=== PATIENT | female | born 1990 | race Caucasian/White ===

== ENCOUNTER 2018-07-30 21:42 | Emergency (ER) | payer SELFPAY ==
[~2018-07-30] VITALS: Ht 149.9 cm; Wt 74.8 kg
--- NOTE | 2018-07-30 22:27 | PHYS DOC ---
Adult General Chief Complaint Chief Complaint: ABDOMINAL PAIN IN HPI HPI Patient is a 28 year old female who presents with RLQ pain with known . Patient had onset of RLQ pain this evening at 9pm constant worse with movement. No fevers or vomiting. No vaginal bleeding or discharge. Pain radiated to her right flank. She's noted frequency and urgency over the past 2 weeks. Patient is in a recovery house for methamphetamine use. She is 14 weeks . Review of Systems Review of Systems Constitutional: Denies fever or chills Eyes: Denies change in visual acuity, redness, or eye pain HENT: Denies nasal congestion or sore throat Respiratory: Denies cough or shortness of breath Cardiovascular: Denies chest pain or palpitations GI: with RLQ abdominal pain, no nausea, vomiting, bloody stools or diarrhea : Denies dysuria or hematuria, with frequency Musculoskeletal: Denies back pain or joint pain, with right flank pain Integument: Denies rash or skin lesions Neurologic: Denies headache, focal weakness or sensory changes Endocrine: Denies polyuria or polydipsia All other systems were reviewed and found to be within normal limits, except as documented in this note. Current Medications Current Medications Current Medications Medications (Trade) Dose Ordered Sig/Richard Start Time Stop Time Status Last Admin Dose Admin Ceftriaxone Sodium 1 gm/ Dextrose 50 ml @ 100 mls/hr 1X STAT 07/30/18 23:39 07/31/18 00:08 UNV Ceftriaxone Sodium 50 ml @ 100 mls/hr 1X ONCE 07/30/18 23:45 07/31/18 00:14 DC 07/31/18 00:10 100 MLS/HR Ondansetron HCl (Zofran) 4 mg STK-MED ONCE 07/30/18 22:51 07/30/18 22:52 DC Sodium Chloride 1,000 ml @ 1,000 mls/hr 1X ONCE 07/30/18 22:45 07/30/18 23:44 DC 07/30/18 22:45 1,000 MLS/HR Allergies Allergies Allergies Coded Allergies Type Severity Reaction Last Updated Verified No Known Drug Allergies 07/30/18 No Physical Exam Physical Exam Constitutional: Well developed, well nourished, no acute distress, non-toxic appearance. [] HENT: Normocephalic, atraumatic, bilateral external ears normal, oropharynx moist, no oral exudates, nose normal. [] Eyes: PERRLA, EOMI, conjunctiva normal, no discharge. [] Neck: Normal range of motion, no tenderness, supple, no stridor. [] Cardiovascular:Heart rate regular rhythm, no murmur [] Lungs & Thorax: Bilateral breath sounds clear to auscultation [] Abdomen: Bowel sounds normal, soft, no tenderness, no masses, no pulsatile masses. [] Skin: Warm, dry, no erythema, no rash. [] Back: No tenderness, no CVA tenderness. [] Extremities: No tenderness, no cyanosis, no clubbing, ROM intact, no edema. [] Neurologic: Alert and oriented X 3, normal motor function, normal sensory function, no focal deficits noted. [] Psychologic: Affect normal, judgement normal, mood normal. [] Current Patient Data Vital Signs Vital Signs Date Time Temp Pulse Resp B/P (MAP) Pulse Ox O2 Delivery O2 Flow Rate FiO2 07/31/18 02:43 95 18 106/55 (72) 98 Room Air 07/30/18 22:24 97.6 97.6 Lab Values Laboratory Tests Test 07/30/18 21:45 07/30/18 22:24 07/30/18 22:35 07/30/18 23:59 Urine Collection Type Unknown Urine Color Yellow Urine Clarity Clear Urine pH 6.0 Urine Specific [place] 1.025 Urine Protein Negative mg/dL (NEG-TRACE) Urine Glucose (UA) Negative mg/dL (NEG) Urine Ketones (Stick) Negative mg/dL (NEG) Urine Blood Negative (NEG) Urine Nitrite Negative (NEG) Urine Bilirubin Negative (NEG) Urine Urobilinogen Dipstick 0.2 mg/dL (0.2 mg/dL) Urine Leukocyte Esterase Moderate (NEG) Urine RBC 11-20 /HPF (0-2) Urine WBC >40 /HPF (0-4) Urine Squamous Epithelial Cells Mod /LPF Urine Bacteria Moderate /HPF (0-FEW) Urine Mucus Mod /LPF POC Urine HCG, Qualitative Hcg positive (Negative) White Blood Count 13.8 x10^3/uL (4.0-11.0) H Red Blood Count 4.15 x10^6/uL (3.50-5.40) Hemoglobin 13.2 g/dL (12.0-15.5) Hematocrit 38.3 % (36.0-47.0) Mean Corpuscular Volume 92 fL (79-100) Mean Corpuscular Hemoglobin 32 pg (25-35) Mean Corpuscular Hemoglobin Concent 34 g/dL (31-37) Red Cell Distribution Width 13.4 % (11.5-14.5) Platelet Count 215 x10^3/uL (140-400) Neutrophils (%) (Auto) 74 % (31-73) H Lymphocytes (%) (Auto) 19 % (24-48) L Monocytes (%) (Auto) 5 % (0-9) Eosinophils (%) (Auto) 2 % (0-3) Basophils (%) (Auto) 0 % (0-3) Neutrophils # (Auto) 10.3 x10^3uL (1.8-7.7) H Lymphocytes # (Auto) 2.6 x10^3/uL (1.0-4.8) Monocytes # (Auto) 0.7 x10^3/uL (0.0-1.1) Eosinophils # (Auto) 0.2 x10^3/uL (0.0-0.7) Basophils # (Auto) 0.0 x10^3/uL (0.0-0.2) Maternal Serum HCG Beta Subunit 01521 mIU/mL (0-5) H Sodium Level 139 mmol/L (136-145) Potassium Level 3.6 mmol/L (3.5-5.1) Chloride Level 103 mmol/L (98-107) Carbon Dioxide Level 25 mmol/L (21-32) Anion Gap 11 (6-14) Blood Urea Nitrogen 10 mg/dL (7-20) Creatinine 0.5 mg/dL (0.6-1.0) L Estimated GFR (Cockcroft-Gault) 149.1 BUN/Creatinine Ratio 20 (6-20) Glucose Level 108 mg/dL (70-99) H Calcium Level 9.0 mg/dL (8.5-10.1) Total Bilirubin 0.1 mg/dL (0.2-1.0) L Aspartate Amino Transferase (AST) 10 U/L (15-37) L Alanine Aminotransferase (ALT) 25 U/L (14-59) Alkaline Phosphatase 63 U/L (46-116) Total Protein 6.5 g/dL (6.4-8.2) Albumin 3.1 g/dL (3.4-5.0) L Albumin/Globulin Ratio 0.9 (1.0-1.7) L Lipase 90 U/L (73-393) Lactic Acid Level 0.9 mmol/L (0.4-2.0) Laboratory Tests 07/30/18 22:35 Laboratory Tests 07/30/18 22:35 Microbiology 07/30/18 Blood Culture - Preliminary, Resulted NO GROWTH AFTER 2 DAYS 07/30/18 Urine Culture - Final, Complete 07/30/18 Urine Culture Result 1 (ANGEL) - Final, Complete EKG EKG [] Radiology/Procedures Radiology/Procedures [facility] [address] [place] [address] IMAGING REPORT Signed PATIENT: ALEXUS WHALEY ACCOUNT: [id number] : 1990 LOCATION: ER AGE: 28 SEX: F EXAM STATUS: REG ER ORD. PHYSICIAN: JORGE LUIS ZHANG MD REASON: right flank pain/UTI PROCEDURE: PREG 1ST TRIMESTER Indication:RT FLANK PAIN UTI TECHNIQUE: Ultrasound pelvis was trimester COMPARISON:None FINDINGS: The uterus measures 16.0 x 8.6 x 11.8 cm (longitudinal, AP, transverse). Cervix is within normal limits. The right ovary measures 2.2 x 3.6 x 2.9 cm and demonstrates evidence of blood flow. The left ovary measures 2.1 x 3.7 x 2.0 cm and demonstrates evidence of blood flow. Single intrauterine seen with cardiac activity at the rate of 144 bpm. Placenta is posterior in position. The head circumference measures 9.09 cm corresponding to gestation age of 14 weeks 1 day. The biparietal diameter measures 2.45 cm corresponding to gestation age of 14 weeks 1 day. Abdominal circumference measures 7.63 cm corresponding to gestation age of 14 weeks 1 day. Femoral length measures 1.46 cm corresponding to gestation age of 14 weeks 2 days. IMPRESSION: Single viable intrauterine with estimated gestation age of 14 weeks 1 day. Electronically signed by: Jorje Jensen DO (07/31/2018 1:29 AM) [facility] DICTATED and SIGNED BY: JORJE JENSEN DO DATE: 07/31/18126 [facility] [address] [place] [address] IMAGING REPORT Signed PATIENT: ALEXUS WHALEY ACCOUNT: [id number] : 1990 LOCATION: ER AGE: 28 SEX: F EXAM STATUS: REG ER ORD. PHYSICIAN: JORGE LUIS ZHANG MD REASON: right flank pain/UTI PROCEDURE: RENAL COMPLETE RIGHT Indication:RT FLANK PAIN UTI TECHNIQUE: Grayscale, color Doppler and spectral waveform is of the right kidney obtained. COMPARISON:None FINDINGS/ impression: The right kidney measures 10.0 x 4.4 x 4.2 cm without hydronephrosis. Bladder within normal limits. Bilateral ureteral jets are seen. Electronically signed by: Jorje Jensen DO (07/31/2018 1:31 AM) [facility] DICTATED and SIGNED BY: JORJE JENSEN DO DATE: 07/31/18128 Course & Med Decision Making Course & Med Decision Making Pertinent Labs and Imaging studies reviewed. (See chart for details) Emergency Department Course Patient presents with RLQ pain and frequency DDx- ectopic , appendicitis, right ovarian cyst, right kidney stone, UTI Patient was stable in the ED. 01:20 She is feeling better. Right renal ultrasound showed no evidence of hydronephrosis. Pelvic ultrasound shows a 14 week IUP with cardiac activity at 144. Her right lower quadrant pain has resolved after IV NS hydration and Zofran. Patient given Rocephin for UTI. Labs remarkable for leukocytosis. Quantitative [id number]. 01:[address] Louis who recommends outpatient antibiotics and follow-up. 02:00 I spoke with pharmacist Leonid who recommends Keflex TID for 10 days. Dragon Disclaimer Dragon Disclaimer This electronic medical record was generated, in whole or in part, using a voice recognition dictation system. Departure Departure Impression: Primary Impression: 14 weeks gestation of Additional Impressions: UTI (urinary tract infection) Abdominal pain during in second trimester Disposition: 01 HOME, SELF-CARE Condition: STABLE Referrals: NO PCP (PCP) KEITH OCASIO MD Follow-up tomorrow for further evaluation LUNA LOUIS MD Follow-up tomorrow for further evaluation Patient Instructions: Abdominal Pain During , Urinary Tract Infection Additional Instructions: Follow-up tomorrow for further evaluation. If you develop recurrent pain, fevers , vomiting, shortness of breath, return to the Emergency Department. Scripts Cephalexin (KEFLEX) 500 Mg Capsule 1 CAP PO TID for 10 Days, #30 CAP Prov: JORGE LUIS ZHANG MD 07/31/18 Problem Qualifiers Additional Impressions: UTI (urinary tract infection) Urinary tract infection type: site unspecified Hematuria presence: with hematuria Qualified Codes: N39.0 - Urinary tract infection, site not specified ; R31.9 - Hematuria, unspecified JORGE LUIS ZHANG MD Jul 30, 2018 22:27
[2018-07-30 22:34] LABS: BILIRUBIN,URINE NEGATIVE (NEG); CLARITY,URINE CLEAR; COLOR,URINE YELLOW; NITRITE,URINE NEGATIVE (NEG); PROTEIN,URINE NEGATIVE (NEG-TRACE); UROBILINOGEN,URINE 0.2 mg/dL (0.2 mg/dL)
[2018-07-30 22:42] LABS: BACTERIA,URINE MODERATE /HPF (0-FEW); SQUAMOUS EPITHELIAL CELL,UR MOD /LPF; WBC,URINE >40 /HPF (0-4)
[2018-07-30] MEDS: IV NORMAL SALINE 1000ML BAG 1,000 ML IV ONE (22:45)
[2018-07-30] MEDS: ONDANSETRON PF 4 MG/2 ML VIAL. IV ONE (22:45)
[2018-07-30 22:49] LABS: BASO % 0 % (0-3); EOS # 0.2 x10^3/uL (0.0-0.7); EOS % 2 % (0-3); HEMATOCRIT 38.3 % (36.0-47.0); HEMOGLOBIN 13.2 g/dL (12.0-15.5); LYMPH # 2.6 x10^3/uL (1.0-4.8); LYMPH % 19 % (24-48); MEAN CORPUSCULAR HEMOGLOBIN 32 pg (25-35); MEAN CORPUSCULAR HGB CONC 34 g/dL (31-37); MEAN CORPUSCULAR VOLUME 92 fL (79-100); MONO # 0.7 x10^3/uL (0.0-1.1); MONO % 5 % (0-9); NEUT # 10.3 x10^3uL (1.8-7.7); NEUT % 74 % (31-73); PLATELET COUNT 215 x10^3/uL (140-400); RED BLOOD COUNT 4.15 x10^6/uL (3.50-5.40); RED CELL DISTRIBUTION WIDTH 13.4 % (11.5-14.5); WHITE BLOOD COUNT 13.8 x10^3/uL (4.0-11.0)
[2018-07-30] MEDS ORDERED: ONDANSETRON PF 4 MG/2 ML VIAL. ONE (22:51)
[2018-07-30 22:59] LABS: CREATININE 0.5 mg/dL (0.6-1.0); GFR 149.1; POTASSIUM 3.6 mmol/L (3.5-5.1)
[2018-07-30 23:08] LABS: ALBUMIN 3.1 g/dL (3.4-5.0); ALBUMIN/GLOBULIN RATIO 0.9 (1.0-1.7); TOTAL BILIRUBIN 0.1 mg/dL (0.2-1.0); TOTAL PROTEIN 6.5 g/dL (6.4-8.2)
--- NOTE | 2018-07-31 01:33 | RAD ---
Indication:RT FLANK PAIN UTI TECHNIQUE: Ultrasound pelvis was trimester COMPARISON:None FINDINGS: The uterus measures 16.0 x 8.6 x 11.8 cm (longitudinal, AP, transverse). Cervix is within normal limits. The right ovary measures 2.2 x 3.6 x 2.9 cm and demonstrates evidence of blood flow. The left ovary measures 2.1 x 3.7 x 2.0 cm and demonstrates evidence of blood flow. Single intrauterine seen with cardiac activity at the rate of 144 bpm. Placenta is posterior in position. The head circumference measures 9.09 cm corresponding to gestation age of 14 weeks 1 day. The biparietal diameter measures 2.45 cm corresponding to gestation age of 14 weeks 1 day. Abdominal circumference measures 7.63 cm corresponding to gestation age of 14 weeks 1 day. Femoral length measures 1.46 cm corresponding to gestation age of 14 weeks 2 days. IMPRESSION: Single viable intrauterine with estimated gestation age of 14 weeks 1 day. Electronically signed by: Jorje Jensen DO (07/31/2018 1:29 AM) [facility]
--- NOTE | 2018-07-31 01:34 | RAD ---
Indication:RT FLANK PAIN UTI TECHNIQUE: Grayscale, color Doppler and spectral waveform is of the right kidney obtained. COMPARISON:None FINDINGS/ impression: The right kidney measures 10.0 x 4.4 x 4.2 cm without hydronephrosis. Bladder within normal limits. Bilateral ureteral jets are seen. Electronically signed by: Jorje Jensen DO (07/31/2018 1:31 AM) [facility]
[2018-07-31] MEDS ORDERED: CEPH-264 PO (02:08)
[2018-07-31 02:43] VITALS: BP 106/55
== END 2018-07-31 02:57 | disposition home or self-care (01) ==
LOC: ER 21:42
DX: O23.42 Unspecified infection of urinary tract in pregnancy, second trimester (principal); R10.31 Right lower quadrant pain; Z3A.14 14 weeks gestation of pregnancy
CPT/HCPCS: 36415; 76775; 76801; 80053; 81001; 81025; 83605; 83690; 84702; 85025; 87040; 87086; 96365; 96375; 99285; J0690; J2405; J7030

== ENCOUNTER 2018-08-13 19:52 | Emergency (ER) | payer SELFPAY ==
[~2018-08-13] VITALS: Ht 149.9 cm; Wt 78.5 kg
[~2018-08-13 19:52] MED LIST: CEPH-264 PO
[2018-08-13] MEDS ORDERED: IV NORMAL SALINE 1000ML BAG 1,000 ML IV SCH (20:12)
[2018-08-13] MEDS ORDERED: ONDANSETRON PF 4 MG/2 ML VIAL. IV ONE (20:15)
[2018-08-13 20:23] LABS: BILIRUBIN,URINE NEGATIVE (NEG); CLARITY,URINE CLEAR; COLOR,URINE YELLOW; NITRITE,URINE NEGATIVE (NEG); PROTEIN,URINE NEGATIVE (NEG-TRACE); UROBILINOGEN,URINE 0.2 mg/dL (0.2 mg/dL)
[2018-08-13 20:30] LABS: SQUAMOUS EPITHELIAL CELL,UR FEW /LPF
[2018-08-13 20:31] LABS: BACTERIA,URINE FEW /HPF (0-FEW); RBC,URINE 0 /HPF (0-2)
[2018-08-13 20:33] LABS: TRICHOMONAS,URINE PRESENT
[2018-08-13 20:36] LABS: BASO # 0.1 x10^3/uL (0.0-0.2); BASO % 1 % (0-3); EOS # 0.4 x10^3/uL (0.0-0.7); EOS % 3 % (0-3); HEMATOCRIT 36.2 % (36.0-47.0); HEMOGLOBIN 12.6 g/dL (12.0-15.5); LYMPH # 2.2 x10^3/uL (1.0-4.8); LYMPH % 16 % (24-48); MEAN CORPUSCULAR HEMOGLOBIN 32 pg (25-35); MEAN CORPUSCULAR HGB CONC 35 g/dL (31-37); MEAN CORPUSCULAR VOLUME 91 fL (79-100); MONO # 0.7 x10^3/uL (0.0-1.1); MONO % 5 % (0-9); NEUT # 10.9 x10^3uL (1.8-7.7); NEUT % 76 % (31-73); PLATELET COUNT 211 x10^3/uL (140-400); RED BLOOD COUNT 3.97 x10^6/uL (3.50-5.40); RED CELL DISTRIBUTION WIDTH 13.3 % (11.5-14.5); WHITE BLOOD COUNT 14.4 x10^3/uL (4.0-11.0)
[2018-08-13 20:45] LABS: CALCIUM 8.9 mg/dL (8.5-10.1); CREATININE 0.7 mg/dL (0.6-1.0); GFR 101.1; POTASSIUM 3.4 mmol/L (3.5-5.1)
[2018-08-13 20:50] LABS: ALBUMIN 2.8 g/dL (3.4-5.0); ALBUMIN/GLOBULIN RATIO 0.7 (1.0-1.7); TOTAL BILIRUBIN 0.1 mg/dL (0.2-1.0); TOTAL PROTEIN 6.7 g/dL (6.4-8.2)
[2018-08-13 21:01] LABS: % BANDS 2 % (0-9); % EOS 1 % (0-5); % LYMPHS 17 % (24-48); % MONOS 2 % (0-10); % SEGS 78 % (35-66); PLT ESTIMATE ADEQUATE (ADEQUATE)
--- NOTE | 2018-08-13 21:33 | RAD ---
EXAM: RIGHT UPPER QUADRANT ULTRASOUND. HISTORY: Right upper quadrant pain. COMPARISON: None. FINDINGS: Sonographic evaluation of the right upper quadrant was performed. The liver appears normal in parenchymal echotexture. There are no focal lesions. The gallbladder is unremarkable without evidence of stones, wall thickening or pericholecystic fluid. There is no sonographic Gonzalez sign. The common duct measures 4 mm. Limited images of the visualized portions of the head of the pancreas reveal no abnormality. The right kidney measures 10.0 cm. Cortical thickness and echogenicity are preserved. There is no hydronephrosis. The visualized portions of the abdominal aorta and inferior vena cava are grossly patent and normal in caliber. IMPRESSION: 1. No cause for pain is identified. Electronically signed by: Harini Arias MD (08/13/2018 9:30 PM) [facility]
--- NOTE | 2018-08-13 21:45 | RAD ---
EXAM: Limited obstetric ultrasound. HISTORY: Decreased movement. COMPARISON: None. FINDINGS: Sonographic evaluation of the pelvis and fetus was performed transabdominally. There is a single fetus in vertex presentation. Estimated gestational age based on measurements is 15 weeks 3 days. Individual measurements are commensurate at 15 weeks, 1-5 days. heart rate is 141 bpm. movement is noted. The placenta is posterior. Amniotic fluid volume appears normal. IMPRESSION: 1. Single fetus measuring 15 weeks 3 days. heart rate 141 bpm. Electronically signed by: Harini Arias MD (08/13/2018 9:42 PM) [facility]
[2018-08-13] MEDS ORDERED: ONDA4TAB7 PO (22:31)
--- NOTE | 2018-08-13 22:31 | PHYS DOC ---
Past Medical History Past Medical History: No Pertinent History Past Surgical History: No Surgical History Alcohol Use: None Drug Use: None Adult General Chief Complaint Chief Complaint: OTHER COMPLAINTS HPI HPI Patient is a 28-year-old female who presents with complaint of nausea and vomiting and some pain in her right upper abdomen for the last couple of days. Patient indicates that she is between 14 and 16 weeks and is concerned because she has also felt no movements today. She indicates that the pain in her abdomen is mild and rates it about a 3 or 4 out of 10. She states the pain is worsened after eating. She denies any chest pain or shortness of breath. She also denies any fever. Patient states that nothing improves the symptoms. Review of Systems Review of Systems Constitutional: Denies fever or chills [] Respiratory: Denies cough or shortness of breath [] Cardiovascular: Denies chest pain[] GI: Complains of right upper abdominal pain with nausea and vomiting.[] : Denies dysuria or hematuria [] Musculoskeletal: Complains of mid back pain, primarily on the right[] All other systems were reviewed and found to be within normal limits, except as documented in this note. Current Medications Current Medications Current Medications Medications (Trade) Dose Ordered Sig/Richard Start Time Stop Time Status Last Admin Dose Admin Ondansetron HCl (Zofran) 4 mg 1X ONCE 08/13/18 20:15 08/13/18 20:16 DC 08/13/18 20:15 4 MG Sodium Chloride 1,000 ml @ 1,000 mls/hr Q1H 08/13/18 20:12 08/13/18 21:11 DC 08/13/18 20:12 1,000 MLS/HR Allergies Allergies Allergies Coded Allergies Type Severity Reaction Last Updated Verified No Known Drug Allergies 07/30/18 No Physical Exam Physical Exam Constitutional: Well developed, well nourished, no acute distress, non-toxic appearance. [] HENT: Normocephalic, atraumatic, bilateral external ears normal, oropharynx moist, no oral exudates, nose normal. [] Eyes: PERRLA, EOMI, conjunctiva normal, no discharge. [] Neck: Normal range of motion, no tenderness, supple, no stridor. [] Cardiovascular:Heart rate regular rhythm, no murmur [] Lungs & Thorax: Bilateral breath sounds clear to auscultation [] Abdomen: Bowel sounds normal, soft, with mild right upper quadrant tenderness. [ ] Skin: Warm, dry, no erythema, no rash. [] Extremities: No tenderness, no cyanosis, no clubbing, ROM intact, no edema. [] Neurologic: Alert and oriented X 3, normal motor function, normal sensory function, no focal deficits noted. [] Current Patient Data Vital Signs Vital Signs Date Time Temp Pulse Resp B/P (MAP) Pulse Ox O2 Delivery O2 Flow Rate FiO2 08/13/18 20:00 98.3 101 18 132/79 (96) 97 Room Air 98.3 Lab Values Laboratory Tests Test 08/13/18 20:00 08/13/18 20:30 Urine Collection Type Unknown Urine Color Yellow Urine Clarity Clear Urine pH 6.0 Urine Specific [place] 1.020 Urine Protein Negative mg/dL (NEG-TRACE) Urine Glucose (UA) Negative mg/dL (NEG) Urine Ketones (Stick) Negative mg/dL (NEG) Urine Blood Negative (NEG) Urine Nitrite Negative (NEG) Urine Bilirubin Negative (NEG) Urine Urobilinogen Dipstick 0.2 mg/dL (0.2 mg/dL) Urine Leukocyte Esterase Moderate (NEG) Urine RBC 0 /HPF (0-2) Urine WBC 5-10 /HPF (0-4) Urine Squamous Epithelial Cells Few /LPF Urine Bacteria Few /HPF (0-FEW) Urine Mucus Mod /LPF Urine Trichomonas Present White Blood Count 14.4 x10^3/uL (4.0-11.0) H Red Blood Count 3.97 x10^6/uL (3.50-5.40) Hemoglobin 12.6 g/dL (12.0-15.5) Hematocrit 36.2 % (36.0-47.0) Mean Corpuscular Volume 91 fL (79-100) Mean Corpuscular Hemoglobin 32 pg (25-35) Mean Corpuscular Hemoglobin Concent 35 g/dL (31-37) Red Cell Distribution Width 13.3 % (11.5-14.5) Platelet Count 211 x10^3/uL (140-400) Neutrophils (%) (Auto) 76 % (31-73) H Lymphocytes (%) (Auto) 16 % (24-48) L Monocytes (%) (Auto) 5 % (0-9) Eosinophils (%) (Auto) 3 % (0-3) Basophils (%) (Auto) 1 % (0-3) Neutrophils # (Auto) 10.9 x10^3uL (1.8-7.7) H Lymphocytes # (Auto) 2.2 x10^3/uL (1.0-4.8) Monocytes # (Auto) 0.7 x10^3/uL (0.0-1.1) Eosinophils # (Auto) 0.4 x10^3/uL (0.0-0.7) Basophils # (Auto) 0.1 x10^3/uL (0.0-0.2) Segmented Neutrophils % 78 % (35-66) H Band Neutrophils % 2 % (0-9) Lymphocytes % 17 % (24-48) L Monocytes % 2 % (0-10) Eosinophils % 1 % (0-5) Platelet Estimate Adequate (ADEQUATE) Sodium Level 138 mmol/L (136-145) Potassium Level 3.4 mmol/L (3.5-5.1) L Chloride Level 103 mmol/L (98-107) Carbon Dioxide Level 21 mmol/L (21-32) Anion Gap 14 (6-14) Blood Urea Nitrogen 11 mg/dL (7-20) Creatinine 0.7 mg/dL (0.6-1.0) Estimated GFR (Cockcroft-Gault) 101.1 BUN/Creatinine Ratio 16 (6-20) Glucose Level 128 mg/dL (70-99) H Calcium Level 8.9 mg/dL (8.5-10.1) Total Bilirubin 0.1 mg/dL (0.2-1.0) L Aspartate Amino Transferase (AST) 13 U/L (15-37) L Alanine Aminotransferase (ALT) 18 U/L (14-59) Alkaline Phosphatase 64 U/L (46-116) Total Protein 6.7 g/dL (6.4-8.2) Albumin 2.8 g/dL (3.4-5.0) L Albumin/Globulin Ratio 0.7 (1.0-1.7) L Laboratory Tests 08/13/18 20:30 Laboratory Tests 08/13/18 20:30 EKG EKG [] Radiology/Procedures Radiology/Procedures [] Course & Med Decision Making Course & Med Decision Making Pertinent Labs and Imaging studies reviewed. (See chart for details) [] Dragon Disclaimer Dragon Disclaimer This electronic medical record was generated, in whole or in part, using a voice recognition dictation system. Departure Departure Impression: Primary Impression: Abdominal pain affecting Additional Impression: Nausea and vomiting during Disposition: HOME, SELF-CARE Condition: STABLE Referrals: NO PCP (PCP) Patient Instructions: Abdominal Pain During , Nausea and Vomiting Scripts Ondansetron Hcl (ZOFRAN) 4 Mg Tablet 4 MG PO PRN TID PRN for NAUSEA/VOMITING, #15 nausea/vomiting Prov: MIKE LUBIN Jr. DO 08/13/18 Problem Qualifiers MIKE LUBIN Jr. DO Aug 13, 2018 22:31
[2018-08-13 22:46] VITALS: BP 116/66
== END 2018-08-13 22:47 | disposition home or self-care (01) ==
LOC: ER 19:52
DX: O21.9 Vomiting of pregnancy, unspecified (principal); R10.11 Right upper quadrant pain; M54.6 Pain in thoracic spine; Z3A.15 15 weeks gestation of pregnancy
CPT/HCPCS: 36415; 76705; 76815; 80053; 81001; 85007; 85025; 96361; 96374; 99285; J2405; J7030